=== PATIENT | male | born 1995 | race Caucasian/White ===

== ENCOUNTER 2020-02-22 08:01 | Emergency (ER) | payer BC ==
--- NOTE | 2020-02-22 08:51 | EDM.PDOC ---
ED [facility] GENERAL MEDICAL PROBLEM - General Chief Complaint: ENT Problem Stated Complaint: POSSIBLE EAR INFECTION Time Seen by Provider: 02/22/20 08:40 Source of Information: Reports: Patient History Limitations: Reports: No Limitations - History of Present Illness INITIAL COMMENTS - FREE TEXT/NARRATIVE: Patient is a 24-year-old male no significant past medical history presenting with chief complaint of left ear pain and sinus pressure. Patient states he has been feeling these symptoms for the past 2 to 3 days. Patient denies any associated fevers. Patient denies any dizziness, tinnitus, ear discharge. Patient has not been using any medications. Patient has no cough, sore throat, chest pain, shortness of breath. Pmhx: None Pshx: None Family Hx: noncontributory Smoking history? no Etoh use? none Drug use? none In addition to that documented in the HPI above, the additional ROS was obtained : Constitutional: Denies fevers or chills Eyes: Denies vision changes ENMT: Denies sore throat CV: Denies chest pain Resp: Denies SOB GI: Denies vomiting or diarrhea : Denies painful urination MSK: Denies recent trauma Skin: Denies new rashes Neuro: Denies new numbness or tingling or weakness Endocrine: Denies unexpected weight loss Heme: Denies bleeding disorders I have reviewed the triage vital signs Const: Well nourished, well developed, appears stated age Eyes: PERRL, no conjunctival injection HENT: Tympanic membranes normal bilaterally no swelling of the canal or discharge. NCAT, Neck supple without meningismus CV: RRR, Warm, well-perfused extremities RESP: CTAB, Unlabored respiratory effort GI: soft, non-tender, non-distended, no masses MSK: No gross deformities appreciated Skin: Warm, dry. 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 Sensation and motor function of extremities grossly intact. Psych: Appropriate mood and affect Assessment and plan: Patient 24-year-old male presenting with sinus congestion and left ear pain. Patient has no evidence of otitis media or otitis externa. Patient has no evidence of mastoiditis. Patient likely has upper respiratory tract infection with rhinitis. Patient will be prescribed [id number] medications for symptom relief. Patient given return precautions. All questions addressed and answered. Patient agrees with plan. Left Ear Pain Score (Numeric/FACES): 3 - Related Data Allergies Allergy/AdvReac Type Severity Reaction Status Date / Time No Known Allergies Allergy Verified 02/22/20 08:18 Home Meds: Home Meds Naproxen [Naprosyn] 500 mg PO Q12HR #12 tab 02/22/20 [Rx] Oxymetazoline [Nasal Decongestant] 15 ml OG BID #1 bottle 02/22/20 [Rx] Past Medical History - Past Health History Medical/Surgical History: Denies Medical/Surgical History Social & Family History - Family History Family Medical History: Noncontributory - Tobacco Use Smoking Status *Q: Current Every Day Smoker Years of Tobacco use: 10 Packs/Tins Daily: 1.5 - Caffeine Use Caffeine Use: Reports: None - Recreational Drug Use Recreational Drug Use: No ED ROS ENT - Review of Systems Review Of Systems: See Below ED EXAM, ENT - Physical Exam Exam: See Below Course - Vital Signs Last Recorded V/S: Last Vital Signs Temp 36.8 C 02/22/20 08:19 Pulse 91 02/22/20 08:19 Resp 16 02/22/20 08:19 BP 142/86 H 02/22/20 08:19 Pulse Ox 98 02/22/20 08:19 Departure - Departure Time of Disposition: 08:50 Disposition: Home, Self-Care 01 Clinical Impression: URI (upper respiratory infection) - Discharge Information Prescriptions: Naproxen [Naprosyn] 500 mg PO Q12HR #12 tab Oxymetazoline [Nasal Decongestant] 15 ml OG BID #1 bottle Instructions: Upper Respiratory Infection, Adult, [id number] Referrals: PCP,None [Primary Care Provider] - Forms: ED Department Discharge Additional Instructions: The following information is given to patients seen in the emergency department who are being discharged to home. This information is to outline your options for follow-up care. We provide all patients seen in our emergency department with a follow-up referral. The need for follow-up, as well as the timing and circumstances, are variable depending upon the specifics of your emergency department visit. If you don't have a primary care physician on staff, we will provide you with a referral. We always advise you to contact your personal physician following an emergency department visit to inform them of the circumstance of the visit and for follow-up with them and/or the need for any referrals to a consulting specialist. The emergency department will also refer you to a specialist when appropriate. This referral assures that you have the opportunity for follow-up care with a specialist. All of these measure are taken in an effort to provide you with optimal care, which includes your follow-up. Under all circumstances we always encourage you to contact your private physician who remains a resource for coordinating your care. When calling for follow-up care, please make the office aware that this follow-up is from your recent emergency room visit. If for any reason you are refused follow-up, please contact the Emergency Department at and asked to speak to the emergency department charge nurse. Sepsis Event Note - Evaluation Sepsis Screening Result: No Definite Risk - Focused Exam Vital Signs: Vital Signs Temp Pulse Resp BP Pulse Ox 02/22/20 08:19 36.8 C 91 16 142/86 H 98 Date Exam was Performed: 02/22/20 Time Exam was Performed: 11:44
== END 2020-02-22 09:02 | disposition home or self-care (01) ==
LOC: MW.ED 08:01
DX: J06.9 Acute upper respiratory infection, unspecified (principal); F17.210 Nicotine dependence, cigarettes, uncomplicated
CPT/HCPCS: 99282

== ENCOUNTER 2021-03-08 18:53 | Emergency (ER) | payer BC, MEDICAID ==
[2021-03-08] MEDS ORDERED: Lidocaine 2% Viscous Solution 15 ML Cup PO ONE (20:08)
[2021-03-08] MEDS ORDERED: Benzocaine 20% Topical Spray UD MUCMEM ONE (20:08)
--- NOTE | 2021-03-08 20:08 | EDM.PDOC ---
ED [facility] GENERAL MEDICAL PROBLEM - General Stated Complaint: TOOTHACHE Time Seen by Provider: 03/08/21 19:39 Source of Information: Reports: Patient History Limitations: Reports: No Limitations - History of Present Illness INITIAL COMMENTS - FREE TEXT/NARRATIVE: 25-year-old male presents with right lower dental pain since yesterday. Pain is moderate, localized to the right lower jaw, nonradiating, constant, exacerbated with mastication, no alleviating factors. Patient denies fever, chills, hoarse voice, sore throat, headache, chest pain, shortness of breath, abdominal pain, focal numbness or weakness. ROS: A 10-point review of systems, other than pertinent positives and negatives as stated per HPI, is otherwise negative Past medical history: No additional pertinent history Past Surgical history: No additional pertinent history Social history: No additional pertinent history Family history: No additional pertinent history PHYSICAL EXAM General: AOx4, GCS = 15, No distress HEENT: dry mucous membrane, dental caries with extensive swelling to right lower jaw teeth #29-32, no periapical abscess, no induration to submandibular space, no tongue elevation, no hoarse voice or stridor. Neck: supple, no meningismus, no Kernig or Brudzinski Cardiac: S1S2 RRR Respiratory: CTAB, no crackles or rales, no wheezing Abdomen: Soft, nontender, no rebound or guarding, nondistended, no pulsatile mass. Back: nontender Musculoskeletal: NVI distally, no deformity Neuro: No focal deficits, CN 2 - 12 WNL. - Related Data Allergies Allergy/AdvReac Type Severity Reaction Status Date / Time No Known Allergies Allergy Verified 03/08/21 19:42 Home Meds: Home Meds Ibuprofen 400 mg PO Q6H PRN #20 tablet 03/08/21 [Rx] Penicillin V Potassium [Veetids] 500 mg PO Q8H #15 tab 03/08/21 [Rx] Past Medical History - Past Health History Medical/Surgical History: Denies Medical/Surgical History Social & Family History - Family History Family Medical History: No Pertinent Family History - Caffeine Use Caffeine Use: Reports: None ED ROS ENT - Review of Systems Review Of Systems: See Below (see dictation) ED EXAM, ENT - Physical Exam Exam: See Below (see dictation) Course - Re-Assessments/Exams Free Text/Narrative Re-Assessment/Exam: 03/08/21 20:40 After dental balls applied in the ER, the patient improved and is currently stable for discharge. I performed a repeat exam and did not appreciate new abnormal findings. Patient exhibits normal vital signs and has a normal gait on road test. I advised the patient to return to the ER for reevaluation if symptoms worsened, including fever, worsening pain, or any other worrisome symptoms. I instructed the patient to follow up with their PCP within 2-3 days. Departure - Departure Time of Disposition: 20:12 Disposition: Home, Self-Care 01 Condition: Good Clinical Impression: Dental caries - Discharge Information *PRESCRIPTION DRUG MONITORING PROGRAM REVIEWED*: Not Applicable *COPY OF PRESCRIPTION DRUG MONITORING REPORT IN PATIENT KAYLIN: Not Applicable Prescriptions: Ibuprofen 400 mg PO Q6H PRN #20 tablet PRN Reason: Pain (Moderate 4-6) Penicillin V Potassium [Veetids] 500 mg PO Q8H #15 tab Instructions: Preventive Dental Care, Adult Referrals: PCP,None [Primary Care Provider] - Forms: ED Department Discharge
[2021-03-08] MEDS ORDERED: Lidocaine 2% Viscous Solution 15 ML Cup ONE (20:15)
== END 2021-03-08 20:25 | disposition home or self-care (01) ==
LOC: MW.ED 18:53
DX: K02.9 Dental caries, unspecified (principal)
CPT/HCPCS: 99282; A9270